=== PATIENT | female | born 1970 ===

== ENCOUNTER 2020-06-28 14:50 | Emergency (ER) | payer SELFPAY ==
[~2020-06-28] VITALS: Ht 152.4 cm; Wt 85.0 kg
[2020-06-28 15:28] VITALS: Ht 152.4 cm; Wt 85.0 kg
[2020-06-28] MEDS ORDERED: IBUPROFEN200 MG PO (15:32)
[2020-06-28] MEDS ORDERED: SYNTHROID200 MC1 PO (15:32)
[2020-06-28] MEDS ORDERED: ACETAMINOPHEN500 M1 PO (15:33)
[2020-06-28 16:13] LABS: BASOPHILS 0.3 % (0-2); EOSINOPHILS 4.1 % (0-7); HEMATOCRIT 37.9 % (36.0-48.0); IMMATURE GRANULOCYTES 0.3 % (0-5); LYMPHOCYTES 35.6 % (15-50); MCH 25.7 pg (26.0-34.0); MCHC 31.7 g/dL (31.0-37.0); MCV 81.2 fL (80.0-100.0); MEAN PLATELET VOLUME 8.7 fL (7.4-10.4); MONOCYTES 6.4 % (2-11); NEUTROPHILS 53.3 % (40-80); PLATELET COUNT 289 10x3/uL (130-400); RBC 4.67 10x6/uL (4.00-5.40); RDW 14.2 % (11.5-14.5); WBC 9.4 10x3/uL (4.8-10.8)
[2020-06-28 16:23] LABS: APTT 29.8 SECONDS (22.8-39.4); INR 0.93 (0.85-1.17); PROTIME 12.5 SECONDS (11.6-15.0)
[2020-06-28 16:40] LABS: ANION GAP 9.2 mmol/L (8-16); CALCIUM 8.5 mg/dL (8.5-10.1); CARBON DIOXIDE 29.8 mmol/L (21.0-32.0); CREATININE - SERUM 1.1 mg/dL (0.6-1.3)
[2020-06-28 16:42] LABS: ALBUMIN 3.6 g/dL (3.4-5.0); BILIRUBIN - TOTAL 0.18 mg/dL (0.2-1.3)
[2020-06-28] MEDS ORDERED: KEFLEX500 MG PO (17:05)
[2020-06-28] MEDS ORDERED: MECLIZINE HCL25 MG PO (17:05)
[2020-06-28] MEDS ORDERED: ZOFRAN ODT4 MG/UDTAB PO (17:05)
[2020-06-28 17:56] VITALS: BP 144/88
== END 2020-06-28 18:01 | disposition home or self-care (01) ==
LOC: D.ER 14:50
PROVIDERS: Family Medicine
DX: J01.90 Acute sinusitis, unspecified (principal); R42 Dizziness and giddiness